=== PATIENT | male | born 1955 | race Caucasian/White ===

== ENCOUNTER 2018-08-09 10:07 | Emergency (ER) | payer SELFPAY ==
[2018-08-09 10:32] VITALS: BP 155/81; PULSE 78; TEMP 97.5; BMI 30.6
--- NOTE | 2018-08-09 11:34 | PDOC ---
History of Present Illness - General Chief Complaint: Pain, Acute Stated Complaint: RIGHT LEG PAIN Time Seen by Provider: 08/09/18 11:26 - History of Present Illness Initial Comments: 08/09/18 11:31 63-year-old male presents for evaluation of right knee pain 1 month first fell while stepping off a bus Past History - Past Medical History Allergies/Adverse Reactions: Allergies Allergy/AdvReac Type Severity Reaction Status Date / Time No Known Allergies Allergy Verified 08/09/18 10:28 Home Medications: Ambulatory Orders Acetaminophen [Tylenol] 650 mg PO QID PRN 08/09/18 COPD: No - Suicide/Smoking/Psychosocial Hx Smoking History: Never smoked Review of Systems - Review of Systems Constitutional: No: Fever Musculoskeletal: Yes: Joint Pain *Physical Exam - Vital Signs Last Vital Signs Temp Pulse Resp BP Pulse Ox 97.5 F L 78 18 155/81 97 08/09/18 10:31 08/09/18 10:31 08/09/18 10:31 08/09/18 10:31 08/09/18 10:31 - Physical Exam Comments: 08/09/18 11:32 Right knee skin color and temperature are normal. Extensor mechanism is intact. Full range of motion with mild discomfort medially at terminal flexion. Mild medial joint line tenderness no lateral joint line tenderness or instability mild patellofemoral crepitation thigh and calf are soft and nontender. Negative straight leg raise test. Normal hip and ankle range of motion. Neurovascularly intact without gross sensorimotor deficits. Moderate Sedation - Procedure Monitoring Vital Signs: Procedure Monitoring Vital Signs Temperature 97.5 F L 08/09/18 10:31 Pulse Rate 78 08/09/18 10:31 Respiratory Rate 18 08/09/18 10:31 Blood Pressure 155/81 08/09/18 10:31 O2 Sat by Pulse Oximetry (%) 97 08/09/18 10:31 *DC/Admit/Observation/Transfer Diagnosis at time of Disposition: Knee pain - Discharge Dispostion Disposition: HOME Condition at time of disposition: Stable Decision to Admit order: No - Referrals Referrals: Davy Ramirez MD [Staff Physician] - - Patient Instructions Printed Discharge Instructions: DI for Knee Pain Additional Instructions: He may weight-bear as tolerated. Return to the emergency room should symptoms worsen or go unresolved. Please follow-up with orthopedic surgery in 2-3 days for further evaluation and treatment options. Continue with Tylenol as directed for pain. - Post Discharge Activity
== END 2018-08-09 11:39 | disposition home or self-care (01) ==
LOC: JERFT 10:07
DX: M25.561 Pain in right knee (principal); V78.4XXA Person boarding or alighting from bus injured in noncollision transport accident, initial encounter; Y92.414 Local residential or business street as the place of occurrence of the external cause; Y93.89 Activity, other specified; Y99.8 Other external cause status
CPT/HCPCS: 99281-25